=== PATIENT | female | born 2005 | race African-American/Black ===

== ENCOUNTER 2023-03-04 12:31 | Day surgery (SDC) | payer OTHER ==
[2023-03-04] MEDS ORDERED: hydrALAZINE 20 MG/ML VIAL SLOW IVP PRN (13:17)
[2023-03-04 13:43] LABS: Bilirubin Neg (Negative); Blood, Urine Negative (Negative); Clarity Clear (Clear); Glucose, Urine (Dipstick) Normal (Negative); Ketone, Urine 15 mg/dL (Negative); Leukocyte 100 (Negative); Nitrite Negative (Negative); Protein, Urine (Dipstick) Negative (Neg-Trace); Urobilinogen Normal mg/dL (Less than 2)
[2023-03-04 13:51] VITALS: BMI 27.1
[2023-03-04 14:58] LABS: RBC/HPF 0-3 HPF (0-3)
[2023-03-04 14:59] LABS: Bacteria/HPF 2+ HPF (None Seen); CAUTI Indications for Culture Pregnancy; Transitional Epithelial 0-3 HPF (None Seen)
[2023-03-04 15:00] LABS: Urine Culture Reflex Yes Yes
== END 2023-03-04 15:25 | disposition home or self-care (01) ==
LOC: CSHLD/OP 12:31
PROVIDERS: ATTEND Family Medicine
DX: O99.891 Other specified diseases and conditions complicating pregnancy (principal); R10.9 Unspecified abdominal pain; Z3A.23 23 weeks gestation of pregnancy
CPT/HCPCS: 81001; 87086; 87480; 87510; 87660

== ENCOUNTER 2023-03-28 20:43 | Day surgery (SDC) | payer OTHER ==
[2023-03-28 21:29] VITALS: BMI 26.9
[2023-03-28] MEDS ORDERED: hydrALAZINE 20 MG/ML VIAL SLOW IVP PRN (21:56)
[2023-03-28] MEDS ORDERED: Acetaminophen 500 MG TAB PO SCH (22:00)
== END 2023-03-29 02:03 | disposition home or self-care (01) ==
LOC: CSHLD/OP 20:43
PROVIDERS: ATTEND Family Medicine
DX: O99.891 Other specified diseases and conditions complicating pregnancy (principal); O98.212 Gonorrhea complicating pregnancy, second trimester; A54.9 Gonococcal infection, unspecified; O23.599 Infection of other part of genital tract in pregnancy, unspecified trimester; B37.31 Acute candidiasis of vulva and vagina; Z3A.26 26 weeks gestation of pregnancy
CPT/HCPCS: 99282

== ENCOUNTER 2023-05-31 20:02 | Day surgery (SDC) | payer OTHER ==
[2023-05-31 20:17] VITALS: BMI 28.7
[2023-05-31] MEDS ORDERED: hydrALAZINE 20 MG/ML VIAL SLOW IVP PRN (20:54)
[2023-05-31 21:47] LABS: Bilirubin Neg (Negative); Blood, Urine Negative (Negative); Clarity Clear (Clear); Glucose, Urine (Dipstick) Normal (Negative); Ketone, Urine Negative (Negative); Leukocyte Negative (Negative); Nitrite Negative (Negative); Protein, Urine (Dipstick) Negative (Neg-Trace); Specific Gravity, Urine 1.005 (1.005-1.030); Urobilinogen Normal mg/dL (Less than 2)
[2023-05-31 21:57] LABS: Bacteria/HPF None Seen HPF (None Seen); CAUTI Indications for Culture Pregnancy; RBC/HPF None Seen HPF (0-3); Squamous Epithelial 0-3 HPF (0-3); WBC/HPF 0-3 HPF (0-3)
[2023-05-31 21:58] LABS: Urine Culture Reflex Yes Yes
== END 2023-05-31 23:00 | disposition home or self-care (01) ==
LOC: CSHLD/OP 20:02
PROVIDERS: ATTEND Obstetrics & Gynecology
DX: O26.893 Other specified pregnancy related conditions, third trimester (principal); J98.9 Respiratory disorder, unspecified; O47.03 False labor before 37 completed weeks of gestation, third trimester; Z3A.36 36 weeks gestation of pregnancy
CPT/HCPCS: 81001; 87086

== ENCOUNTER 2023-06-20 22:45 | Day surgery (SDC) | payer OTHER ==
[2023-06-20 23:14] VITALS: BMI 29.2
[2023-06-20] MEDS ORDERED: hydrALAZINE 20 MG/ML VIAL SLOW IVP PRN (23:30)
== END 2023-06-21 00:47 | disposition home or self-care (01) ==
LOC: CSHLD/OP 22:45
PROVIDERS: ATTEND Emergency Medicine
DX: O99.891 Other specified diseases and conditions complicating pregnancy (principal); R10.9 Unspecified abdominal pain; O98.513 Other viral diseases complicating pregnancy, third trimester; B00.9 Herpesviral infection, unspecified; O99.323 Drug use complicating pregnancy, third trimester; F12.90 Cannabis use, unspecified, uncomplicated; Z3A.39 39 weeks gestation of pregnancy; Z79.2 Long term (current) use of antibiotics

== ENCOUNTER 2023-06-26 04:52 | Inpatient (IN) | payer OTHER ==
[2023-06-26 05:14] VITALS: BMI 31.1
[2023-06-26] MEDS ORDERED: Tranexamic Acid 1,000 MG/10 ML VIAL IVP PRN (07:19)
[2023-06-26] MEDS ORDERED: Diphenoxylate HCl/Atropine Tablet PO PRN (07:19)
[2023-06-26] MEDS ORDERED: Acetaminophen 500 MG TAB PO PRN (07:19)
[2023-06-26] MEDS ORDERED: Lidocaine 1% (PF) 30 ML VIAL SC PRN (07:19)
[2023-06-26] MEDS ORDERED: Ibuprofen 800 MG TAB PO PRN (07:19)
[2023-06-26] MEDS ORDERED: Misoprostol 200 MCG TAB PR PRN (07:19)
[2023-06-26] MEDS ORDERED: Promethazine HCl 25 MG/ML VIAL IM PRN (07:19)
[2023-06-26] MEDS ORDERED: Ondansetron PF 4 MG/2 ML Vial IVP PRN (07:19)
[2023-06-26] MEDS ORDERED: Carboprost 250 MCG/ML AMP IM PRN (07:19)
[2023-06-26] MEDS ORDERED: Methylergonovine 0.2 MG/ML VIAL IM PRN (07:19)
[2023-06-26] MEDS ORDERED: hydrALAZINE 20 MG/ML VIAL SLOW IVP PRN (07:19)
[2023-06-26] MEDS ORDERED: Oxytocin 30 units/NS 500 ML 500 ML IV SCH ×2 (07:30→15:30)
[2023-06-26 07:38] LABS: Hemoglobin 11.5 g/dL (12.0-15.5); Mean Corpuscular HGB CONC 32.9 g/dL (32.0-36.0); Mean Corpuscular Hemoglobin 27.8 pg (27.0-33.0); Mean Corpuscular Volume 84.5 fl (81.6-98.3); Mean Platelet Volume 10.3 fl (7.4-10.4); Platelet Count 243 10x3/uL (150-450); RBC Distribution Width 13.7 % (11.5-14.5); Red Blood Cell (RBC) Count 4.14 10x6/uL (3.90-5.03); White Blood Cell (WBC) Count 8.1 10x3/uL (3.5-10.5)
[2023-06-26] MEDS: Misoprostol 100 MCG TAB VAG SCH ×2 (08:08→12:13)
[2023-06-26 08:37] LABS: Syphilis Antibody Nonreactive (Nonreactive); Syphilis Antibody Index 0.09 S/CO (<1.00 Non-Reactive)
[2023-06-26 08:38] LABS: HBSAg Index 0.21 S/CO (0-0.99); Hep B Surf Ag - L&D Non-Reactive S/CO (NonReactive)
[2023-06-26] MEDS: Calcium Carbonate 500 MG ChewTAB PO PRN (09:43)
[2023-06-26] MEDS: Famotidine 20 MG TAB PO PRN (12:07)
[2023-06-26] MEDS: fentaNYL 50 mcg/mL 1 mL Vial SLOW IVP PRN (17:33)
[2023-06-26] MEDS: Terbutaline Sulfate 1 MG/ML VIAL ONE (18:46)
[2023-06-26] MEDS ORDERED: Artificial Tear Sol 15 ML BOT L EYE PRN (20:05)
[2023-06-27] MEDS: Terbutaline Sulfate 1 MG/ML VIAL SC SCH (01:04)
[2023-06-27] MEDS: Azithromycin 500 MG VIAL ONE (01:05)
[2023-06-27] MEDS: Terbutaline Sulfate 1 MG/ML VIAL ONE (01:05)
[2023-06-27] MEDS: CEFAZOLIN 2 GM VIAL ONE (01:05)
[2023-06-27] MEDS ORDERED: Methylergonovine 0.2 MG/ML VIAL IM PRN (01:38)
[2023-06-27] MEDS ORDERED: Oxytocin 30 units/NS 500 ML 500 ML IV SCH (01:38)
[2023-06-27] MEDS ORDERED: Bisacodyl 10 MG SUPP PR PRN (01:38)
[2023-06-27] MEDS ORDERED: Milk Of Magnesia 30 ML UDCUP PO PRN (01:38)
[2023-06-27] MEDS ORDERED: hydrALAZINE 20 MG/ML VIAL SLOW IVP PRN (01:38)
[2023-06-27] MEDS ORDERED: Misoprostol 200 MCG TAB VAG PRN (01:38)
[2023-06-27] MEDS ORDERED: Boostrix 0.5 ML (Tdap) VIAL (>/=7 yrs of age) IM ONE (01:38)
[2023-06-27] MEDS: Benzocaine-Menthol 82.5 ML CAN TOP PRN (02:23)
[2023-06-27] MEDS: Ibuprofen 800 MG TAB PO SCH (02:34)
[2023-06-27] MEDS: Acetaminophen 325 MG TAB PO PRN (05:16)
[2023-06-27] MEDS ORDERED: Ibuprofen 800 MG TAB PO SCH (06:00)
[2023-06-27] MEDS: HYDROcodone/Acetaminophen 5/325 mg Tablet PO SCH (08:14)
[2023-06-27] MEDS: Docusate 100 MG CAP PO SCH (08:14)
[2023-06-27] MEDS: Ferrous Sulfate 325 MG TAB PO SCH (08:15)
[2023-06-28 07:51] VITALS: BP 108/52; TEMP 97.8
[2023-06-28] MEDS: Polyethylene Glycol 3350 17 GM Packet PO SCH (09:26)
== END 2023-06-28 13:10 | disposition home or self-care (01) | DRG 806 ==
LOC: CSHLD 04:52 → CSHPP 06-27 01:25
PROVIDERS: ADMIT Obstetrics & Gynecology; ATTEND Obstetrics & Gynecology
PROC: 10E0XZZ Delivery of Products of Conception, External Approach (ICD-10-PCS; principal; 2023-06-27)
PROC: 0KQM0ZZ Repair Perineum Muscle, Open Approach (ICD-10-PCS; 2023-06-27)
PROC: 3E0P7VZ Introduction of Hormone into Female Reproductive, Via Natural or Artificial Opening (ICD-10-PCS; 2023-06-27)
PROC: 0UQMXZZ Repair Vulva, External Approach (ICD-10-PCS; 2023-06-27)
DX: O98.52 Other viral diseases complicating childbirth (principal); A54.9 Gonococcal infection, unspecified; Z37.0 Single live birth; Z3A.39 39 weeks gestation of pregnancy; B00.9 Herpesviral infection, unspecified; O69.81X0 Labor and delivery complicated by cord around neck, without compression, not applicable or unspecified; Z87.891 Personal history of nicotine dependence; O70.1 Second degree perineal laceration during delivery; O71.82 Other specified trauma to perineum and vulva
CPT/HCPCS: 36415; 85027; 86780; 86850; 86900; 86901; 87340; J3010; J3105